=== PATIENT | female | born 1935 | race Caucasian/White ===

== ENCOUNTER → 2017-06-23 | Outpatient (CLI) | payer MEDICARE ==
[~2017-06-23] MED LIST: FUROSEMIDE40 MG PO; GABAPENTIN300 MG PO; HYDROCODON-ACE1 EA11 PO; HYDROXYCHLOROQ200 MG PO; LEFLUNOMIDE20 MG PO; MEDROXYPROGEST2.5 MG PO; MENEST0.3 MG PO; NAC600 MG PO; NASONEX17 GM; OMEPRAZOLE40 MG PO; POTASSIUM CHLOR8 ME1 PEG; SUCRALFATE1 GM PO
--- NOTE | 2017-06-23 15:31 | Diagnostic Imaging Report ---
PROCEDURE: Frontal and lateral views of the chest. COMPARISON: [facility], , CHEST 2 VIEWS, 05/20/2016, 11:34. INDICATIONS: SHORT OF BREATH, FLU FINDINGS: Lines/tubes: None. Lungs: Diffuse coarsening of the pulmonary interstitium bilaterally again observed and is suggestive of interstitial lung disease/fibrosis. No focal consolidation. Pleura: There is no pleural effusion or pneumothorax. Heart and mediastinum: The heart and the mediastinum are normal. Bones: No acute bony abnormality. IMPRESSION: 1. No significant interval change. Re-demonstration of diffuse coarsening of the pulmonary interstitium bilaterally again suggestive of interstitial lung disease/fibrosis. Luigi Sears M.D. Dictated by: Luigi Sears M.D. on 06/23/2017 at 15:41 Electronically approved by: Luigi Sears M.D. on 06/23/2017 at 15:41
[2017-06-23 15:51] LABS: BILIRUBIN,URINE 1+ (NEGATIVE); KETONES,URINE NEGATIVE (NEGATIVE); LEUKOCYTE ESTERASE ,URINE NEGATIVE (NEGATIVE); NITRITE,URINE NEGATIVE (NEGATIVE); URINE UROBILINOGEN 0.2 mg/dL (0.2 - 1)
[2017-06-23 15:56] LABS: CLARITY,URINE CLEAR (CLEAR); COLOR,URINE YELLOW (YELLOW); PROTEIN,URINE DIPSTICK 1+ (NEGATIVE)
[2017-06-23 16:11] LABS: ALANINE AMINOTRANSFERASE 60 IU/L (0-55); ALBUMIN 3.7 g/dL (3.5-5.0); ALKALINE PHOSPHATASE 76 IU/L (40-150); BLOOD UREA NITROGEN 16 mg/dL (7-26); BUN/CREATININE RATIO 19 (6-25); CALCIUM 8.8 mg/dL (8.4-10.2); CARBON DIOXIDE 21 mmol/L (22-29); CHLORIDE 109 mmol/L (98-107); CREATININE, SERUM 0.86 mg/dL (0.57-1.11); EST GLOMERULAR FILTRATION RATE > 60 ML/MIN (60-); GLUCOSE 134 mg/dL (74-118); SODIUM 140 mmol/L (136-145)
[2017-06-23 16:12] LABS: BACTERIA,URINE RARE /HPF; EPITHELIAL CELLS,URINE MODERATE /LPF; MUCUS,URINE FEW (RARE); RBC,URINE 0-5 /HPF (0-5); WBC,URINE (MAN) 0-5 /HPF (0-5)
[2017-06-23 16:31] LABS: THYROID STIMULATING HORMONE 1.011 uIU/mL (0.350-4.940)
== END ==
LOC: RAD 14:42
PROVIDERS: ATTEND Internal Medicine Pulmonary Disease
DX: E03.9 Hypothyroidism, unspecified (principal); R06.02 Shortness of breath; J84.9 Interstitial pulmonary disease, unspecified
CPT/HCPCS: 36415; 71046; 80053; 81001; 84436; 84443

== ENCOUNTER → 2017-07-27 | Outpatient (CLI) | payer MEDICARE | END | disposition home or self-care (01) | LOC: LAB 13:00 | PROVIDERS: ATTEND Internal Medicine Pulmonary Disease | DX: R79.89 Other specified abnormal findings of blood chemistry (principal) | CPT/HCPCS: 36415; 84155; 84450; 84460 ==

== ENCOUNTER → 2017-07-29 | Outpatient (CLI) | payer MEDICARE ==
--- NOTE | 2017-07-29 16:36 | Diagnostic Imaging Report ---
PROCEDURE:US LIVER COMPARISON:None. INDICATIONS:ELEVATED LFT'S FINDINGS: LIVER: Size:11.6 cm in the right nidclavicular line, normal Appearance:Normal echogenicity, smooth contour Mass:No focal masses GALLBLADDER: Surgically absent BILE DUCTS: Intrahepatic Ducts:No dilation Extrahepatic Ducts:Common bile duct measures 0.4 cm, no dilatation. PANCREAS: Visualized portions of the neck and proximal body are normal. RIGHT KIDNEY: Size:9.3 x 5.5 x 5.6 cm in length Echogenicity:Normal Collecting System:No hydronephrosis Stone:None Cyst/Mass:None VESSELS: Aorta:Visualized portions are normal. Inferior Vena Cava:Visualized portions are normal. Main Portal Vein:0.9 cm, normal size with hepatopedal flow. FREE FLUID: No ascites or pleural effusions. CONCLUSION: 1. Normal right upper quadrant ultrasound. 2. Gallbladder is surgically absent. Dictated by: Blaine Loaj M.D. on 07/29/2017 at 16:36 Electronically approved by: Blaine Loja M.D. on 07/29/2017 at 16:36
== END ==
LOC: US 15:33
PROVIDERS: ATTEND Internal Medicine Pulmonary Disease
DX: R74.8 Abnormal levels of other serum enzymes (principal); R94.5 Abnormal results of liver function studies
CPT/HCPCS: 76705

== ENCOUNTER → 2018-05-24 | Outpatient (CLI) | payer MEDICARE | LOC: LAB 09:20 | PROVIDERS: ATTEND Internal Medicine Pulmonary Disease | DX: K11.7 Disturbances of salivary secretion (principal) | CPT/HCPCS: 86235 ==

== ENCOUNTER → 2019-10-05 | Outpatient (CLI) | payer MEDICARE ==
--- NOTE | 2019-10-05 15:40 | Diagnostic Imaging Report ---
X-ray chest PA and lateral Comparison: None. History: Weak lungs. Rheumatoid arthritis. Findings: Central airways unremarkable. Heart size borderline normal. No pleural effusion. No pneumothorax. No focal airspace disease. Bilateral pulmonary interstitial prominence mostly interstitial linear type consistent with axial interstitial thickening. No bony combing. No findings to suggest pulmonary nodules to suggest or cavitary lesions. There is symmetric by lateral apical pleural thickening. Visualized bones unremarkable. Upper abdomen cholecystectomy clips. Impression: Findings most suggestive of chronic interstitial lung disease that could be seen with rheumatoid arthritis. This can be further evaluated on high resolution chest CT if needed. Signed by: John Rodriguez MD on 10/05/2019 3:37 PM
== END ==
LOC: RAD 14:29
PROVIDERS: ATTEND Internal Medicine Pulmonary Disease
DX: J84.10 Pulmonary fibrosis, unspecified (principal)
CPT/HCPCS: 71046

== ENCOUNTER → 2020-07-10 | Outpatient (CLI) | payer MEDICARE | LOC: CT 15:28 | PROVIDERS: ATTEND Internal Medicine Pulmonary Disease | DX: J84.10 Pulmonary fibrosis, unspecified (principal) | CPT/HCPCS: 71250 ==

== ENCOUNTER 2021-06-18 10:02 | Emergency (ER) | payer MEDICARE ==
[~2021-06-18] VITALS: Ht 162.6 cm; Wt 81.6 kg
[2021-06-18 10:40] LABS: BASOPHILS % 0.3 % (0.0-1.0); EOSINOPHILS # (AUTO) 0.3 (0.0-0.4); EOSINOPHILS % 2.5 % (0.0-6.0); HEMATOCRIT 37.9 % (34.2-44.1); HEMOGLOBIN 11.7 g/dL (12.0-16.0); LYMPHOCYTES % 9.9 % (18.0-39.1); MEAN CORPUSCULAR HEMOGLOBIN 31.5 pg (28-32); MEAN CORPUSCULAR HGB CONC 30.9 g/dL (31-35); MEAN CORPUSCULAR VOLUME 102.2 fL (81-99); MONOCYTES # (AUTO) 0.7 (0.2-0.8); MONOCYTES % 6.5 % (4.4-11.3); NEUTROPHILS # (AUTO) 8.3 (2.1-6.9); NEUTROPHILS % 80.1 % (38.7-80.0); PLATELET COUNT 191 x10e3/uL (140-360); RED BLOOD COUNT 3.71 x10e6/uL (3.6-5.1)
[2021-06-18 11:16] LABS: ALBUMIN 3.6 g/dL (3.5-5.0); ALBUMIN/GLOBULIN RATIO 1.2 (0.8-2.0); ANION GAP 13.2 mmol/L (8-16); CREATININE, SERUM 0.85 mg/dL (0.57-1.11); POTASSIUM 4.2 mmol/L (3.5-5.1)
== END 2021-06-18 13:10 | disposition home or self-care (01) ==
LOC: ER 10:08
DX: R06.00 Dyspnea, unspecified (principal); R05.9 Cough, unspecified; R51.9 Headache, unspecified; I10 Essential (primary) hypertension; E78.5 Hyperlipidemia, unspecified; K21.9 Gastro-esophageal reflux disease without esophagitis; M06.9 Rheumatoid arthritis, unspecified; Z96.652 Presence of left artificial knee joint; R94.31 Abnormal electrocardiogram [ECG] [EKG]; Z87.09 Personal history of other diseases of the respiratory system
CPT/HCPCS: 36415; 71045; 80053; 83605; 83880; 84484; 85025; 87040; 93005; 99284; U0002

== ENCOUNTER → 2021-07-12 | Outpatient (CLI) | payer MEDICARE ==
[~2021-07-12] MED LIST changes: +REGADENOSON 0.4 MG/5 ML SYR IV ONE
== END ==
LOC: NM 09:40
PROVIDERS: ATTEND Internal Medicine Cardiovascular Disease
DX: R06.02 Shortness of breath (principal); R07.9 Chest pain, unspecified
CPT/HCPCS: 78452; 93017; A9502; J2785

== ENCOUNTER 2021-07-15 12:49 | Inpatient (IN) | payer MEDICARE ==
[~2021-07-15] VITALS: Ht 162.6 cm; Wt 81.6 kg
[~2021-07-15 12:49] MED LIST changes: -REGADENOSON 0.4 MG/5 ML SYR IV ONE
[2021-07-15 13:24] LABS: BASOPHILS % 0.2 % (0.0-1.0); EOSINOPHILS # (AUTO) 0.1 (0.0-0.4); EOSINOPHILS % 0.5 % (0.0-6.0); HEMATOCRIT 44.6 % (34.2-44.1); HEMOGLOBIN 15.1 g/dL (12.0-16.0); LYMPHOCYTES # (AUTO) 1.3 (1.0-3.2); LYMPHOCYTES % 12.1 % (18.0-39.1); MEAN CORPUSCULAR HEMOGLOBIN 31.4 pg (28-32); MEAN CORPUSCULAR HGB CONC 33.9 g/dL (31-35); MEAN CORPUSCULAR VOLUME 92.7 fL (81-99); MONOCYTES # (AUTO) 0.5 (0.2-0.8); MONOCYTES % 4.3 % (4.4-11.3); NEUTROPHILS # (AUTO) 9.2 (2.1-6.9); NEUTROPHILS % 82.4 % (38.7-80.0); PLATELET COUNT 293 x10e3/uL (140-360); RED BLOOD COUNT 4.81 x10e6/uL (3.6-5.1); RED CELL DISTRIBUTION WIDTH 12.8 % (11.7-14.4)
[2021-07-15 13:43] LABS: ALBUMIN 3.4 g/dL (3.5-5.0); ALBUMIN/GLOBULIN RATIO 0.9 (0.8-2.0); ANION GAP 12.5 mmol/L (8-16); CALCIUM 9.1 mg/dL (8.4-10.2); CREATININE, SERUM 0.87 mg/dL (0.57-1.11); POTASSIUM 4.5 mmol/L (3.5-5.1)
[2021-07-15 13:50] LABS: CREATINE KINASE MB 2.4 ng/mL (0-5.0)
[2021-07-15 15:25] VITALS: BP 129/70
[2021-07-15] MEDS ORDERED: HYDROXYCHLOROQUINE SULFATE 200 MG TAB PO SCH (17:00)
[2021-07-15] MEDS: SUCRALFATE 1 GM TAB PO SCH (17:18)
[2021-07-15] MEDS: METHYLPREDNISOLONE SOD SUCC 40 MG/ML VIAL 1ML IV SCH (17:18)
[2021-07-15] MEDS ORDERED: PANTOPRAZOLE SOD 40 MG TABEC PO ONE (17:30)
[2021-07-15] MEDS ORDERED: IOPAMIDOL 370 MG/ML 200 ML INFUS..BTL INJ ONE (18:52)
[2021-07-15] MEDS ORDERED: SODIUM CHLORIDE 0.9% 50ML 50 ML ONE (18:52)
[2021-07-15 19:25] VITALS: BP 157/81
[2021-07-15 20:30] LABS: CREATINE KINASE MB 1.9 ng/mL (0-5.0)
[2021-07-15] MEDS: GABAPENTIN 300 MG CAP PO SCH (20:51)
[2021-07-15] MEDS: FLUTICASONE PROPIONATE NASAL SPRAY NS SCH (20:51)
[2021-07-15] MEDS ORDERED: MIRTAZAPINE 15 MG TAB PO SCH (21:00)
[2021-07-15 21:07] VITALS: BP 129/70
[2021-07-16] VITALS (8 sets, daily range): BP systolic 93–184; BP diastolic 55–71
[2021-07-16] MEDS ORDERED: HYDROCODONE/APAP 5MG-325MG TAB PO PRN
[2021-07-16] MEDS ORDERED: ACETAMINOPHEN 325 MG TAB PO PRN
[2021-07-16] MEDS ORDERED: ONDANSETRON HCL INJ 2MG/ML 2ML 2 MG/ML VIAL IV PRN
[2021-07-16] MEDS ORDERED: SODIUM CHLORIDE 0.9% 250ML 250 ML ONE (01:26)
[2021-07-16 05:19] LABS: BASOPHILS % 0.1 % (0.0-1.0); HEMATOCRIT 39.1 % (34.2-44.1); HEMOGLOBIN 13.3 g/dL (12.0-16.0); LYMPHOCYTES # (AUTO) 1.3 (1.0-3.2); LYMPHOCYTES % 17.2 % (18.0-39.1); MEAN CORPUSCULAR HEMOGLOBIN 31.3 pg (28-32); MONOCYTES # (AUTO) 0.4 (0.2-0.8); MONOCYTES % 4.8 % (4.4-11.3); NEUTROPHILS # (AUTO) 5.8 (2.1-6.9); NEUTROPHILS % 77.2 % (38.7-80.0); PLATELET COUNT 223 x10e3/uL (140-360); RED BLOOD COUNT 4.25 x10e6/uL (3.6-5.1); RED CELL DISTRIBUTION WIDTH 12.7 % (11.7-14.4)
[2021-07-16 05:45] LABS: ALBUMIN 3.2 g/dL (3.5-5.0); ANION GAP 12.3 mmol/L (8-16); CALCIUM 8.7 mg/dL (8.4-10.2); CREATININE, SERUM 0.78 mg/dL (0.57-1.11); POTASSIUM 4.3 mmol/L (3.5-5.1)
[2021-07-16 06:03] LABS: CHOL/HDL RATIO 2.7 (3.0-3.6)
[2021-07-16 06:12] LABS: CREATINE KINASE MB 0.9 ng/mL (0-5.0)
[2021-07-16] MEDS ORDERED: HYDROXYCHLOROQUINE SULFATE 200 MG TAB PO SCH (07:30)
[2021-07-16] MEDS ORDERED: PANTOPRAZOLE SOD 40 MG TABEC PO SCH (09:00)
[2021-07-16] MEDS: [UNRECOGNIZED DRUG - OTHER] PO SCH (09:00)
[2021-07-16] MEDS ORDERED: METOPROLOL SUCCINATE 50 MG TAB XL PO SCH (09:00)
[2021-07-16] MEDS: CEFTRIAXONE 1 GM in SODIUM CHLORIDE 0.9% 50ML 50 ML IV SCH ×3 (09:21)
[2021-07-16] MEDS: SUCRALFATE 1 GM TAB PO SCH (09:22)
[2021-07-16] MEDS: CARVEDILOL 12.5 MG TAB PO SCH ×2 (09:22→17:09)
[2021-07-16] MEDS: METHYLPREDNISOLONE SOD SUCC 40 MG/ML VIAL 1ML IV SCH ×2 (09:22→17:09)
[2021-07-16] MEDS: RIVAROXABAN 15 MG TABLET PO SCH (09:23)
[2021-07-16] MEDS: PANTOPRAZOLE SOD 40 MG TABEC PO SCH (09:23)
[2021-07-16] MEDS: MEDROXYPROGESTERONE ACETATE 2.5 MG TAB PO SCH (11:40)
[2021-07-16] MEDS: MEGESTROL ACETATE 40 MG TAB PO SCH ×2 (11:40→17:11)
[2021-07-16] MEDS: RAMIPRIL 5 MG CAP PO SCH ×2 (17:09→17:11)
[2021-07-16] MEDS: FLUTICASONE PROPIONATE NASAL SPRAY NS SCH (21:00)
[2021-07-16] MEDS: GABAPENTIN 300 MG CAP PO SCH (22:14)
[2021-07-16] MEDS: MIRTAZAPINE 15 MG TAB PO SCH (22:15)
[2021-07-17] VITALS (7 sets, daily range): BP systolic 96–126; BP diastolic 51–65
[2021-07-17] MEDS: PANTOPRAZOLE SOD 40 MG TABEC PO SCH (08:30)
[2021-07-17] MEDS: RIVAROXABAN 15 MG TABLET PO SCH (08:30)
[2021-07-17] MEDS: CEFTRIAXONE 1 GM in SODIUM CHLORIDE 0.9% 50ML 50 ML IV SCH (08:33)
[2021-07-17] MEDS: METHYLPREDNISOLONE SOD SUCC 40 MG/ML VIAL 1ML IV SCH ×2 (08:41→16:15)
[2021-07-17] MEDS: RAMIPRIL 5 MG CAP PO SCH ×2 (08:42→16:15)
[2021-07-17] MEDS: MEGESTROL ACETATE 40 MG TAB PO SCH ×2 (08:43→16:16)
[2021-07-17] MEDS: CARVEDILOL 12.5 MG TAB PO SCH ×2 (08:43→16:16)
[2021-07-17] MEDS: MEDROXYPROGESTERONE ACETATE 2.5 MG TAB PO SCH (08:44)
[2021-07-17] MEDS: [UNRECOGNIZED DRUG - OTHER] PO SCH (08:47)
[2021-07-17] MEDS ORDERED: MEDROXYPROGESTERONE ACETATE 2.5 MG TAB PO SCH (09:00)
[2021-07-17] MEDS ORDERED: ONDANSETRON HCL 4 MG ORAL DISINTEGRATING TAB PO PRN (11:30)
[2021-07-17] MEDS: FLUTICASONE PROPIONATE NASAL SPRAY NS SCH (21:00)
[2021-07-17] MEDS: AZITHROMYCIN 250 MG TAB PO SCH (21:26)
[2021-07-17] MEDS: MIRTAZAPINE 15 MG TAB PO SCH (21:26)
[2021-07-17] MEDS: GABAPENTIN 300 MG CAP PO SCH (21:26)
[2021-07-18] VITALS (7 sets, daily range): BP systolic 112–150; BP diastolic 53–77
[2021-07-18 06:06] LABS: ANION GAP 12.2 mmol/L (8-16); CALCIUM 8.8 mg/dL (8.4-10.2); CREATININE, SERUM 0.8 mg/dL (0.57-1.11); POTASSIUM 4.2 mmol/L (3.5-5.1)
[2021-07-18] MEDS: RIVAROXABAN 15 MG TABLET PO SCH (07:30)
[2021-07-18] MEDS: PANTOPRAZOLE SOD 40 MG TABEC PO SCH (07:30)
[2021-07-18] MEDS: CARVEDILOL 12.5 MG TAB PO SCH ×2 (08:43→17:31)
[2021-07-18] MEDS: RAMIPRIL 5 MG CAP PO SCH ×2 (08:43→17:31)
[2021-07-18] MEDS: MEDROXYPROGESTERONE ACETATE 2.5 MG TAB PO SCH (08:43)
[2021-07-18] MEDS: METHYLPREDNISOLONE SOD SUCC 40 MG/ML VIAL 1ML IV SCH ×2 (08:43→17:31)
[2021-07-18] MEDS: [UNRECOGNIZED DRUG - OTHER] PO SCH (08:43)
[2021-07-18] MEDS: CEFTRIAXONE 1 GM in SODIUM CHLORIDE 0.9% 50ML 50 ML IV SCH (08:43)
[2021-07-18] MEDS: MEGESTROL ACETATE 40 MG TAB PO SCH ×2 (08:43→17:31)
[2021-07-18] MEDS: GABAPENTIN 300 MG CAP PO SCH (21:00)
[2021-07-18] MEDS: AZITHROMYCIN 250 MG TAB PO SCH (21:00)
[2021-07-18] MEDS: MIRTAZAPINE 15 MG TAB PO SCH (21:00)
[2021-07-18] MEDS: FLUTICASONE PROPIONATE NASAL SPRAY NS SCH (21:00)
[2021-07-19] VITALS (7 sets, daily range): BP systolic 113–159; BP diastolic 53–77
[2021-07-19 06:40] LABS: INR 1.25; PROTHROMBIN TIME 16.8 seconds (11.9-14.5)
[2021-07-19] MEDS: PANTOPRAZOLE SOD 40 MG TABEC PO SCH (07:30)
[2021-07-19] MEDS: MEGESTROL ACETATE 40 MG TAB PO SCH ×2 (09:00→18:15)
[2021-07-19] MEDS: [UNRECOGNIZED DRUG - OTHER] PO SCH (09:00)
[2021-07-19] MEDS: CARVEDILOL 12.5 MG TAB PO SCH ×2 (09:00→18:15)
[2021-07-19] MEDS: RAMIPRIL 5 MG CAP PO SCH ×2 (09:00→18:16)
[2021-07-19] MEDS: MEDROXYPROGESTERONE ACETATE 2.5 MG TAB PO SCH (09:00)
[2021-07-19] MEDS: METHYLPREDNISOLONE SOD SUCC 40 MG/ML VIAL 1ML IV SCH ×2 (09:49→18:16)
[2021-07-19] MEDS ORDERED: FENTANYL CITRATE/PF 100MCG/2 ML INJ ONE (10:45)
[2021-07-19] MEDS ORDERED: LIDOCAINE HCL 2% LOCAL 20 ML VIAL ONE (10:45)
[2021-07-19] MEDS ORDERED: MIDAZOLAM HCL 2 MG/2 ML VIAL ONE (10:45)
[2021-07-19] MEDS ORDERED: SODIUM CHLORIDE 0.9% 1000ML 1,000 ML ONE (10:46)
[2021-07-19] MEDS ORDERED: HEPARIN SOD/SOD CHLORIDE 2,000 ML ONE (10:46)
[2021-07-19] MEDS ORDERED: IOPAMIDOL 370 MG/ML 200 ML INFUS..BTL INJ ONE (10:46)
[2021-07-19] MEDS: CEFTRIAXONE 1 GM in SODIUM CHLORIDE 0.9% 50ML 50 ML IV SCH (12:11)
[2021-07-19] MEDS: MIRTAZAPINE 15 MG TAB PO SCH (20:21)
[2021-07-19] MEDS: AZITHROMYCIN 250 MG TAB PO SCH (20:21)
[2021-07-19] MEDS: FLUTICASONE PROPIONATE NASAL SPRAY NS SCH (20:21)
[2021-07-19] MEDS: GABAPENTIN 300 MG CAP PO SCH (20:21)
[2021-07-20] VITALS (7 sets, daily range): BP systolic 102–147; BP diastolic 50–82
[2021-07-20] MEDS: [UNRECOGNIZED DRUG - OTHER] PO SCH (08:28)
[2021-07-20] MEDS: RAMIPRIL 5 MG CAP PO SCH ×2 (09:07→17:00)
[2021-07-20] MEDS: CEFTRIAXONE 1 GM in SODIUM CHLORIDE 0.9% 50ML 50 ML IV SCH (09:07)
[2021-07-20] MEDS: PANTOPRAZOLE SOD 40 MG TABEC PO SCH (09:07)
[2021-07-20] MEDS: METHYLPREDNISOLONE SOD SUCC 40 MG/ML VIAL 1ML IV SCH ×2 (09:07→17:00)
[2021-07-20] MEDS: MEDROXYPROGESTERONE ACETATE 2.5 MG TAB PO SCH (09:08)
[2021-07-20] MEDS: CARVEDILOL 12.5 MG TAB PO SCH (09:08)
[2021-07-20] MEDS: MEGESTROL ACETATE 40 MG TAB PO SCH ×2 (09:10→17:00)
[2021-07-20] MEDS: VERAPAMIL HCL 80 MG TAB PO SCH ×2 (15:30→22:00)
[2021-07-20] MEDS: FLUTICASONE PROPIONATE NASAL SPRAY NS SCH (21:00)
[2021-07-20] MEDS: MIRTAZAPINE 15 MG TAB PO SCH (22:20)
[2021-07-20] MEDS: AZITHROMYCIN 250 MG TAB PO SCH (22:20)
[2021-07-20] MEDS: GABAPENTIN 300 MG CAP PO SCH (22:20)
[2021-07-21] VITALS (8 sets, daily range): BP systolic 103–140; BP diastolic 48–95
[2021-07-21] MEDS: VERAPAMIL HCL 80 MG TAB PO SCH ×3 (06:00→21:45)
[2021-07-21 06:13] LABS: BASOPHILS % 0.2 % (0.0-1.0); HEMATOCRIT 31.9 % (34.2-44.1); HEMOGLOBIN 10.5 g/dL (12.0-16.0); LYMPHOCYTES # (AUTO) 0.9 (1.0-3.2); LYMPHOCYTES % 7.7 % (18.0-39.1); MEAN CORPUSCULAR HEMOGLOBIN 31.4 pg (28-32); MEAN CORPUSCULAR HGB CONC 32.9 g/dL (31-35); MEAN CORPUSCULAR VOLUME 95.5 fL (81-99); MONOCYTES # (AUTO) 0.8 (0.2-0.8); MONOCYTES % 7.5 % (4.4-11.3); NEUTROPHILS # (AUTO) 9.3 (2.1-6.9); NEUTROPHILS % 83.4 % (38.7-80.0); PLATELET COUNT 181 x10e3/uL (140-360); RED BLOOD COUNT 3.34 x10e6/uL (3.6-5.1); RED CELL DISTRIBUTION WIDTH 12.7 % (11.7-14.4)
[2021-07-21 06:27] LABS: INR 1.08
[2021-07-21 06:33] LABS: ANION GAP 9.6 mmol/L (8-16); CALCIUM 8.6 mg/dL (8.4-10.2); CREATININE, SERUM 0.81 mg/dL (0.57-1.11); POTASSIUM 4.6 mmol/L (3.5-5.1)
[2021-07-21] MEDS: PANTOPRAZOLE SOD 40 MG TABEC PO SCH (07:30)
[2021-07-21] MEDS ORDERED: RIVAROXABAN 15 MG TABLET PO SCH (09:00)
[2021-07-21] MEDS: [UNRECOGNIZED DRUG - OTHER] PO SCH (09:00)
[2021-07-21] MEDS: CEFTRIAXONE 1 GM in SODIUM CHLORIDE 0.9% 50ML 50 ML IV SCH (09:57)
[2021-07-21] MEDS: MEDROXYPROGESTERONE ACETATE 2.5 MG TAB PO SCH (09:57)
[2021-07-21] MEDS: PREDNISONE 20 MG TAB PO SCH (09:57)
[2021-07-21] MEDS: MEGESTROL ACETATE 40 MG TAB PO SCH ×2 (09:57→16:12)
[2021-07-21] MEDS: RAMIPRIL 5 MG CAP PO SCH ×2 (09:57→16:12)
[2021-07-21] MEDS ORDERED: SODIUM CHLORIDE 0.9% 50ML 50 ML ONE (10:06)
[2021-07-21] MEDS ORDERED: CYANOCOBALAMIN INJ 1,000 MCG/ML VIAL IM NR (14:30)
[2021-07-21] MEDS: IRON SUCROSE 100 MG in SODIUM CHLORIDE 0.9% 100 ML 100 ML IV SCH (15:21)
[2021-07-21] MEDS: FLUTICASONE PROPIONATE NASAL SPRAY NS SCH (21:00)
[2021-07-21] MEDS: GABAPENTIN 300 MG CAP PO SCH (21:45)
[2021-07-21] MEDS: AZITHROMYCIN 250 MG TAB PO SCH (21:45)
[2021-07-21] MEDS: MIRTAZAPINE 15 MG TAB PO SCH (21:45)
[2021-07-22] VITALS: BP 131/95
[2021-07-22 02:59] VITALS: BP 131/95
[2021-07-22 04:00] VITALS: BP 145/67
[2021-07-22] MEDS: VERAPAMIL HCL 80 MG TAB PO SCH (05:46)
[2021-07-22 08:26] VITALS: BP 134/62
[2021-07-22 08:32] VITALS: BP 134/62
[2021-07-22] MEDS: [UNRECOGNIZED DRUG - OTHER] PO SCH (09:00)
[2021-07-22] MEDS: IRON SUCROSE 100 MG in SODIUM CHLORIDE 0.9% 100 ML 100 ML IV SCH (11:20)
[2021-07-22] MEDS: MEDROXYPROGESTERONE ACETATE 2.5 MG TAB PO SCH (11:23)
[2021-07-22] MEDS: RAMIPRIL 5 MG CAP PO SCH (11:23)
[2021-07-22] MEDS: PREDNISONE 20 MG TAB PO SCH (11:23)
[2021-07-22] MEDS: PANTOPRAZOLE SOD 40 MG TABEC PO SCH (11:23)
[2021-07-22] MEDS: MEGESTROL ACETATE 40 MG TAB PO SCH (11:23)
[2021-07-22 12:35] VITALS: BP 148/59
== END 2021-07-22 13:21 | disposition home or self-care (01) | DRG 286 ==
LOC: ER 12:55 → ERHOLD 13:41 → MED/SURG3 15:01
PROVIDERS: ADMIT Internal Medicine; ATTEND Internal Medicine
PROC: 4A023N7 Measurement of Cardiac Sampling and Pressure, Left Heart, Percutaneous Approach (ICD-10-PCS; principal; 2021-07-19)
PROC: B2011ZZ Plain Radiography of Multiple Coronary Arteries using Low Osmolar Contrast (ICD-10-PCS; 2021-07-19)
PROC: B2051ZZ Plain Radiography of Left Heart using Low Osmolar Contrast (ICD-10-PCS; 2021-07-19)
PROC: B3001ZZ Plain Radiography of Thoracic Aorta using Low Osmolar Contrast (ICD-10-PCS; 2021-07-19)
DX: I27.20 Pulmonary hypertension, unspecified (principal); J18.9 Pneumonia, unspecified organism; I50.33 Acute on chronic diastolic (congestive) heart failure; E22.2 Syndrome of inappropriate secretion of antidiuretic hormone; J84.10 Pulmonary fibrosis, unspecified; I48.0 Paroxysmal atrial fibrillation; I11.0 Hypertensive heart disease with heart failure; R09.02 Hypoxemia; R62.7 Adult failure to thrive; Z68.30 Body mass index [BMI] 30.0-30.9, adult; Z79.01 Long term (current) use of anticoagulants; K44.9 Diaphragmatic hernia without obstruction or gangrene; I25.10 Atherosclerotic heart disease of native coronary artery without angina pectoris; M25.50 Pain in unspecified joint; M06.9 Rheumatoid arthritis, unspecified; I08.1 Rheumatic disorders of both mitral and tricuspid valves; Z88.5 Allergy status to narcotic agent; Z88.0 Allergy status to penicillin; Z20.822 Contact with and (suspected) exposure to COVID-19
CPT/HCPCS: 36415; 70450; 71045; 71260; 75625; 78580; 80048; 80053; 80061; 82550; 82553; 83735; 83880; 84484; 85025; 85610; 87070; 87205; 93005; 93460; 93880; 94799; 97139; 99152; 99153; 99284; A9540; C1751; C1769; C1887; C1894; J0456; J0696; J1756; J2001; J2250; J2920; J3010; J3420; J7030; J7050; J7512; Q9967; U0002

== ENCOUNTER → 2021-09-30 | Outpatient (CLI) | payer MEDICARE | LOC: MRI 11:34 | PROVIDERS: ATTEND Internal Medicine Cardiovascular Disease | DX: M54.50 Low back pain, unspecified (principal) | CPT/HCPCS: 72148 ==

== ENCOUNTER 2022-02-25 14:33 | Observation (INO) | payer MEDICARE ==
[~2022-02-25] VITALS: Ht 160 cm; Wt 72.1 kg
[2022-02-25 14:57] LABS: BASOPHILS % 0.2 % (0.0-1.0); HEMATOCRIT 38.5 % (34.2-44.1); HEMOGLOBIN 12.3 g/dL (12.0-16.0); LYMPHOCYTES # (AUTO) 0.6 (1.0-3.2); LYMPHOCYTES % 5.7 % (18.0-39.1); MEAN CORPUSCULAR HEMOGLOBIN 32.3 pg (28-32); MEAN CORPUSCULAR HGB CONC 31.9 g/dL (31-35); MONOCYTES # (AUTO) 0.3 (0.2-0.8); MONOCYTES % 2.2 % (4.4-11.3); NEUTROPHILS # (AUTO) 10.3 (2.1-6.9); NEUTROPHILS % 91.1 % (38.7-80.0); PLATELET COUNT 299 x10e3/uL (140-360); RED BLOOD COUNT 3.81 x10e6/uL (3.6-5.1)
[2022-02-25 15:15] LABS: ALBUMIN 2.8 g/dL (3.5-5.0); CALCIUM 7.2 mg/dL (8.4-10.2); CREATININE, SERUM 0.95 mg/dL (0.57-1.11)
[2022-02-25 15:22] LABS: CLARITY,URINE CLEAR (CLEAR); COLOR,URINE YELLOW (YELLOW); KETONES,URINE NEGATIVE (NEGATIVE); LEUKOCYTE ESTERASE ,URINE NEGATIVE (NEGATIVE); NITRITE,URINE NEGATIVE (NEGATIVE); PROTEIN,URINE DIPSTICK NEGATIVE (NEGATIVE); URINE UROBILINOGEN 0.2 mg/dL (0.2 - 1)
[2022-02-25 15:33] LABS: BACTERIA,URINE RARE /HPF; EPITHELIAL CELLS,URINE RARE /LPF; RBC,URINE 0-5 /HPF (0-5); WBC,URINE (MAN) 0-5 /HPF (0-5)
[2022-02-25] MEDS ORDERED: ASPIRIN 81 MG CHEW TAB PO ONE (16:00)
[2022-02-25] MEDS ORDERED: VERAPAMIL HCL 120 MG TABSR PO SCH (17:15)
[2022-02-25] MEDS: METOPROLOL TARTRATE INJ 1 MG/ML VIAL IV PRN (18:25)
[2022-02-25] MEDS ORDERED: EVOXAC30 MG (18:41)
[2022-02-25] MEDS ORDERED: WELCHOL625 MG PO (18:43)
[2022-02-25] MEDS ORDERED: DIGOXIN125 MCG PO (18:44)
[2022-02-25] MEDS ORDERED: CYMBALTA20 MG PO (18:44)
[2022-02-25] MEDS ORDERED: ESTRADIOL1 MG PO (18:45)
[2022-02-25] MEDS ORDERED: METOPROLOL SUC100 MG (18:46)
[2022-02-25] MEDS ORDERED: MIRTAZAPINE15 MG PO (18:46)
[2022-02-25] MEDS ORDERED: OMEPRAZOLE40 MG PO (18:46)
[2022-02-25] MEDS ORDERED: ELIQUIS2.5 MG PO (18:47)
[2022-02-25] MEDS ORDERED: VERAPAMIL ER120 MG PO (18:47)
[2022-02-25 20:35] VITALS: BP 125/77
[2022-02-25 20:50] VITALS: BP 125/77
[2022-02-25] MEDS: APIXAB 2.5 MG TABLET PO SCH (21:08)
[2022-02-26] VITALS (7 sets, daily range): BP systolic 106–138; BP diastolic 56–124
[2022-02-26] MEDS: QUETIAPINE FUMARATE 25 MG TAB PO PRN ×2 (03:44→10:28)
[2022-02-26 05:02] LABS: BASOPHILS % 0.3 % (0.0-1.0); EOSINOPHILS # (AUTO) 0.1 (0.0-0.4); EOSINOPHILS % 1.1 % (0.0-6.0); HEMATOCRIT 37.7 % (34.2-44.1); HEMOGLOBIN 12.1 g/dL (12.0-16.0); LYMPHOCYTES % 20.1 % (18.0-39.1); MEAN CORPUSCULAR HEMOGLOBIN 32.8 pg (28-32); MEAN CORPUSCULAR HGB CONC 32.1 g/dL (31-35); MEAN CORPUSCULAR VOLUME 102.2 fL (81-99); MONOCYTES % 10.2 % (4.4-11.3); NEUTROPHILS # (AUTO) 6.6 (2.1-6.9); NEUTROPHILS % 67.7 % (38.7-80.0); PLATELET COUNT 260 x10e3/uL (140-360); RED BLOOD COUNT 3.69 x10e6/uL (3.6-5.1); RED CELL DISTRIBUTION WIDTH 13.7 % (11.7-14.4)
[2022-02-26 05:23] LABS: CALCIUM 8.8 mg/dL (8.4-10.2); CREATININE, SERUM 1.01 mg/dL (0.57-1.11)
[2022-02-26] MEDS: DIGOXIN 0.125 MG TAB PO SCH (09:00)
[2022-02-26] MEDS: DULOXETINE HCL 20 MG DELAYED RELEASE PO SCH ×3 (09:00→21:27)
[2022-02-26] MEDS: VERAPAMIL HCL 120 MG TABSR PO SCH (09:00)
[2022-02-26] MEDS: APIXAB 2.5 MG TABLET PO SCH ×3 (09:00→21:27)
[2022-02-26] MEDS: ESTRADIOL 0.5 MG TAB PO SCH (09:00)
[2022-02-26] MEDS: PANTOPRAZOLE SOD 40 MG TABEC PO SCH (09:00)
[2022-02-26] MEDS: SUCRALFATE 1 GM TAB PO SCH ×3 (09:00→16:30)
[2022-02-26] MEDS ORDERED: ALPRAZOLAM 0.5 MG TAB PO PRN (11:00)
[2022-02-26] MEDS ORDERED: QUETIAPINE FUMARATE 25 MG TAB PO PRN (11:00)
[2022-02-26] MEDS ORDERED: LORAZEPAM INJ 2 MG/ML VIAL IV ONE ×2 (11:15→11:30)
[2022-02-26] MEDS: METOPROLOL TARTRATE INJ 1 MG/ML VIAL IV PRN (11:16)
[2022-02-26] MEDS ORDERED: METOPROLOL TARTRATE 25 MG TAB PO SCH (11:30)
[2022-02-26] MEDS: COLESEVELAM HCL 625 MG TAB PO SCH (12:00)
[2022-02-26] MEDS ORDERED: MIRTAZAPINE 15 MG TAB PO SCH (21:00)
[2022-02-26] MEDS: METOPROLOL TARTRATE 25 MG TAB PO SCH (21:27)
[2022-02-27] VITALS: BP 106/56
[2022-02-27 04:14] VITALS: BP 123/72
[2022-02-27] MEDS: SUCRALFATE 1 GM TAB PO SCH ×2 (07:30→11:30)
[2022-02-27 08:28] VITALS: BP 128/89
[2022-02-27] MEDS: COLESEVELAM HCL 625 MG TAB PO SCH (09:00)
[2022-02-27] MEDS: METOPROLOL TARTRATE 25 MG TAB PO SCH (09:00)
[2022-02-27] MEDS: VERAPAMIL HCL 120 MG TABSR PO SCH (09:00)
[2022-02-27] MEDS: ESTRADIOL 0.5 MG TAB PO SCH (09:00)
[2022-02-27] MEDS: DULOXETINE HCL 20 MG DELAYED RELEASE PO SCH (09:00)
[2022-02-27] MEDS: APIXAB 2.5 MG TABLET PO SCH (09:00)
[2022-02-27] MEDS: DIGOXIN 0.125 MG TAB PO SCH (09:00)
[2022-02-27] MEDS: PANTOPRAZOLE SOD 40 MG TABEC PO SCH (09:00)
[2022-02-27 11:52] VITALS: BP 136/90
[2022-02-27] MEDS ORDERED: VERAPAMIL ER120 MG PO (12:46)
== END 2022-02-27 13:55 | disposition hospice, home (50) ==
LOC: ER 14:35 → ERHOLD 15:30 → MED/SURG 19:55
PROVIDERS: ADMIT Internal Medicine; ATTEND Internal Medicine
DX: I48.91 Unspecified atrial fibrillation (principal); Z79.01 Long term (current) use of anticoagulants; Z88.5 Allergy status to narcotic agent; Z88.0 Allergy status to penicillin; J84.10 Pulmonary fibrosis, unspecified; M06.9 Rheumatoid arthritis, unspecified; I27.20 Pulmonary hypertension, unspecified; F05 Delirium due to known physiological condition; F03.92 Unspecified dementia, unspecified severity, with psychotic disturbance; I11.0 Hypertensive heart disease with heart failure; I50.9 Heart failure, unspecified; K21.9 Gastro-esophageal reflux disease without esophagitis; I25.10 Atherosclerotic heart disease of native coronary artery without angina pectoris; Z20.822 Contact with and (suspected) exposure to COVID-19
CPT/HCPCS: 0223U; 36415 ×2; 71045; 80048; 80053; 81001; 83880; 84484; 85025 ×2; 87086; 93005 ×2; 94799 ×2; 99251; 99284; G0378 ×3; J2060; S0164 ×2